=== PATIENT | female | born 1985 | race Caucasian/White ===

== ENCOUNTER → 2016-05-22 | Day surgery (SDC) | payer OTHER ==
[~2016-05-22] MED LIST: ACETAMINOPHEN/HYDROcodone 325 MG/5 MG TAB ONE; BUPIVACAINE HCL PF 0.25% 30 ML VIAL ONE; DOXY100T PO; FLAG500T PO; KETOROLAC TROMETHAMINE 30 MG/ML (IVP) VIAL IV PUSH ONE; LACTATED RINGER'S 1000 ML INJ 1,000 ML ONE; MIDAZOLAM HCL 2 MG/2 ML VIAL ONE; ONDANSETRON HCL 4 MG/2 ML VIAL IV PUSH ONE; PROPOFOL 200 MG/20 ML AMP IV ONE; ceFAZolin 2 GM PREMIX 50 ML ONE
--- NOTE | 2016-05-22 16:30 | MP ---
cc: KENYA CLAY DPM DATE OF SURGERY: 05/22/2016. 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 POSTOPERATIVE DIAGNOSIS: Left hallux abductovalgus with fifth metatarsal pain and bunionette deformity. OPERATIVE PROCEDURE PERFORMED: Modified Lapidus bunionectomy and fifth metatarsal osteotomy. SURGEON: Kenya Clay DPM SPECIMEN: None. ESTIMATED BLOOD LOSS: Less than 30 mL. INJECTABLES: 20 mL of 0.25% Marcaine plain. ANESTHESIA: General. TOURNIQUET TIME: 89 minutes at a setting of 215 mmHg. PLAN OF ACTIVITY: To post-anesthesia care unit and then discharge home when stable per same day surgery criteria. MATERIALS USED: [employer] screws x2 (3.5) and x2 (2.0), both cannulated screws. DESCRIPTION OF THE PROCEDURE IN DETAIL: Under mild sedation, the patient was brought into the operating room and placed on the operative tablet in the supine position. Following the induction of general anesthesia, local anesthesia was obtained about the forefoot utilizing standard block fashion. The patient's left foot was then scrubbed, prepped and draped in the usual aseptic fashion. The foot was elevated, exsanguinated and the previously placed mid-ankle tourniquet was inflated to 215 mmHg. An incision was made at the dorsal aspect of the first MPJ with a slight curve at the level of the first metatarsal medial cuneiform joint. Sharp and blunt dissection was carried down to the first MPJ joint capsule. The extensor hallucis longus was retracted medially. Sharp and blunt dissection was carried down to the first interspace and at the level of the conjoined tendon, the fibular suspensory ligament was severed. Next, a medial L-shaped capsulotomy was performed revealing a prominent dorsomedial eminence with good articular surface of the first metatarsal. Next, the bunion deformity dorsomedial eminence was transected being careful to maintain the sagittal groove. The wound was flushed with copious amounts of normal saline. A McGlamry elevator was introduced deep into the first MPJ freeing up plantar lateral contractures of the sesamoidal apparatus. Sharp and blunt dissection was then carried down carefully to the first metatarsophalangeal joint base. The joint surface was then transected in a biplanar wedge reducing the first and second intermetatarsal angle allowing for rotation of the first metatarsal and angling the sesamoids more in a rectus position and of course closing down and slightly plantar flexing the first and second intermetatarsal angle and the first ray. Once being certain that the first metatarsal base and the head of the medial cuneiform was free from any cartilage, it was then fused utilizing proper A/O technique. Two screws were then placed: one dorsal distal to plantar proximal and then from proximal dorsal to plantar distal. There was noted to be compression across the arthrodesis site with maintained bunion correction. The wound was then closed in layers, periosteum and capsular tissue as well as skin. Next incision was made at the dorsal aspect of the fifth metatarsal. Sharp and blunt dissection was carried down to the fifth MPJ. An L-shaped capsulotomy was performed. Prominent dorsal lateral eminence was transected. Next, an offset V osteotomy was performed and the capital fragment was transposed medially 2 mm and fixated utilizing x2 [employer] screws. This was performed utilizing proper A/O technique. The redundant proximal shelf was then transected. The capsule was repaired utilizing Vicryl. Skin was closed utilizing nylon. X-rays were taken throughout the procedure. There was noted to be significant improvement with minimal HAV and hardware in adequate length. The pneumatic tourniquet was dropped. There was a prompt hyperemic response to all digits. A bulky bandage was placed. The patient was positioned within a controlled ankle motion boot. The patient is heel transfer weight-bear only. She will follow up within three to five days. SHAYY Nelson/KORI /3:12 PM /4:16 PM
== END | disposition home or self-care (01) ==
LOC: ESDC 11:32
PROVIDERS: ATTEND Podiatrist Foot & Ankle Surgery
DX: M20.12 Hallux valgus (acquired), left foot (principal); M21.622 Bunionette of left foot
CPT/HCPCS: 01480; 28110; 28297; 73630; 76000; C1713; J0690; J1885; J2250; J2405; J3010; J7120

== ENCOUNTER → 2016-07-31 | Day surgery (SDC) | payer OTHER ==
[~2016-07-31] MED LIST changes: -ACETAMINOPHEN/HYDROcodone 325 MG/5 MG TAB ONE; -BUPIVACAINE HCL PF 0.25% 30 ML VIAL ONE; +BUPIVACAINE HCL PF 0.75% 30 ML VIAL ONE; +LIDOCAINE 1.5%/EPINEPHrine 1:200,000 PF SOLN 30 ML AMP NERV BLOCK ONE; -MIDAZOLAM HCL 2 MG/2 ML VIAL ONE; +MIDAZOLAM HCL 5 MG/ML VIAL (1 ML) ONE
--- NOTE | 2016-07-31 19:09 | MP ---
cc: KENYA CLAY DPM DATE OF SURGERY: 07/31/2016. PREOPERATIVE DIAGNOSIS: 1. Right hallux abductovalgus with bunion deformity. 2. Fifth metatarsal exostosis with tailor's bunion POSTOPERATIVE DIAGNOSIS: 1. Right hallux abductovalgus with bunion deformity. 2. Fifth metatarsal exostosis with tailor's bunion OPERATIVE PROCEDURE PERFORMED: Right modified Lapidus bunionectomy and fifth metatarsal osteotomy. SURGEON: Kenya Clay DPM ESTIMATED BLOOD LOSS: Minimal. COMPLICATIONS: None. ANESTHESIA: General with popliteal block and saphenous blocks. DRAINS: None. TOURNIQUET TIME: Approximately 74 minutes at a setting of 215 mmHg. ESTIMATED BLOOD LOSS: Less than 30 mL. SPECIMENS: None. PLAN OF ACTIVITY: Post-anesthesia care unit and then discharge home once stable per same day surgery criteria. JUSTIFICATION FOR THE PROCEDURE: This is a pleasant 31-year-old female with a history of bilateral bunion and bunionette pain. She recently had surgery on the left. She has healed and now she is ready for the right. We devised a plan to move forward with the same procedure that was performed on the left as on the right. No guarantees were given or implied regarding the outcome. DESCRIPTION OF THE PROCEDURE IN DETAIL: Under mild sedation, the patient was brought into the operating room and placed on the operating table in the supine position. Following the induction of LMA general anesthesia, the right lower extremity was then scrubbed, prepped and draped in the usual aseptic fashion. The foot was elevated and exsanguinated and the previously placed midcalf tourniquet was inflated to 215 mmHg. An incision was made over the dorsal aspect the first MPJ which became slight curved to the central part of the foot at the base of the first metatarsal medial cuneiform joint. Sharp and blunt dissection was carried down to the first MPJ. A linear incision was made revealing a prominent dorsal medial eminence which was resected utilizing power instrumentation. Cartilage was noted to be intact without any arthritic findings of the first MPJ. A McGlamry elevator was introduced deep into the first MPJ freeing up plantar and lateral contractures. Next, an incision was made at the base of the first metatarsal medial cuneiform joint being careful not to violate any tendinous or neurovascular structures. A biplanar wedge took place removing the cartilage of the base of the first metatarsal and head of the medial cuneiform. This was done in such a fashion to slightly plantar flex the first metatarsal and close down the first and second intermetatarsal angle. Utilizing proper A/O fixation, two cannulated screws were then placed across the first metatarsal cuneiform joint from lateral dorsal distal to plantar proximal and one was from dorsal distal medial to plantar proximal medial. These were [employer] screws, one was a 3.5 screw x2. The wound was flushed with copious amounts of normal saline. Redundant capsule was removed utilizing a 15 blade capsule and periosteum was closed utilizing Vicryl. The deep dermis was closed utilizing Monocryl. Skin was closed utilizing nylon. Next an incision was made over the dorsolateral aspect of the fifth MPJ. Sharp and blunt dissection was carried down to the joint capsule. An L-shaped capsulotomy was performed. The prominent dorsolateral eminence was transected. The wound was flushed with copious amounts of normal saline. An offset V osteotomy was performed with a longer dorsal arm. The capital fragment was then transposed medially 2-3 mm and then fixated utilizing x1 a 2.0 [employer] screw. There was noted to be compression across the osteotomy site. The prominent redundant shelf was then transected to smooth contour. The wound was flushed with copious amounts of normal saline. The capsule was then repaired utilizing Vicryl. The deep dermis was closed utilizing Monocryl. The skin was closed utilizing nylon. X-rays were used at this time to visualize the hardware. Excellent placement noted of the three screws. Absent bunion and bunionette deformity. A bulky bandage was placed. The patient was transferred from the operating room to the post-anesthesia care unit with all vital signs stable. She is heel-transfer weight-bear. She will ice, elevate and I will see the patient within three to five days. SHAYY eNlson/KORI /2:07 PM /6:58 PM
== END | disposition home or self-care (01) ==
LOC: ESDC 09:57
PROVIDERS: ATTEND Podiatrist Foot & Ankle Surgery
DX: M20.11 Hallux valgus (acquired), right foot (principal); M21.621 Bunionette of right foot
CPT/HCPCS: 01480; 28110; 28297; 64450; 73620; 76000; C1713; J0690; J1885; J2250; J2405; J7120